=== PATIENT | female | born 1960 | race Two or more races ===

== ENCOUNTER → 2016-09-07 | Outpatient (CLI) | payer MEDICARE, MEDICAID ==
[2015-12-25 04:08] VITALS: BP 114/57
[~2016-09-07] MED LIST: ONDA4TAB10 SL; unknown BP med PO
--- NOTE | 2016-09-11 12:16 | RESP ---
DATE OF SERVICE: 09/07/2016 The patient underwent full pulmonary function testing dated 09/07/2016. FEV1 to FVC ratio was 98%. FEV1 was elevated at 127% of predicted. FVC was elevated at 124% of predicted. Total lung capacity was elevated. Residual volume was elevated. Diffusion capacity was elevated. IMPRESSION: 1. No evidence of restrictive or obstructive disorder. 2. Elevated residual volume compatible with air trapping. BENNY PATTERSON MD DR: FANTASMA/felix JOB#: [id number] / [id number] MORIAH Combs MD
== END | disposition home or self-care (01) ==
LOC: PF 12:11
PROVIDERS: ATTEND Internal Medicine Cardiovascular Disease
DX: J44.9 Chronic obstructive pulmonary disease, unspecified (principal)
CPT/HCPCS: 94010; 94729

== ENCOUNTER 2017-11-13 08:45 | Emergency (ER) | payer MEDICARE, MEDICAID ==
[2017-11-13] MEDS: KETOROLAC 60 MG/2 ML INJ. IM (09:07)
[2017-11-13] MEDS: DEXAMETHASONE SOD PHOS 20 MG/5 ML VIAL. IM (09:08)
== END 2017-11-13 09:25 | disposition home or self-care (01) ==
LOC: ER 08:45
DX: M54.5 Low back pain (principal); F41.9 Anxiety disorder, unspecified; F32.9 Major depressive disorder, single episode, unspecified; E78.00 Pure hypercholesterolemia, unspecified; Z90.49 Acquired absence of other specified parts of digestive tract; Z90.89 Acquired absence of other organs
CPT/HCPCS: 96372; 99284; J1100; J1885

== ENCOUNTER 2018-02-06 20:37 | Emergency (ER) | payer MEDICARE, MEDICAID ==
[~2018-02-06] VITALS: Ht 157.5 cm; Wt 77.1 kg
[~2018-02-06 20:37] MED LIST changes: +CYCL10TA2 PO; +DICL50TA2 PO; +METH4TAB2 PO
[2018-02-06] MEDS ORDERED: IV NORMAL SALINE 1000ML BAG 1,000 ML IV ONE (21:45)
[2018-02-06 22:10] LABS: BASO % 1 % (0-3); EOS # 0.2 x10^3/uL (0.0-0.7); EOS % 3 % (0-3); HEMATOCRIT 38.6 % (36.0-47.0); HEMOGLOBIN 13.6 g/dL (12.0-15.5); LYMPH # 2.2 x10^3/uL (1.0-4.8); LYMPH % 37 % (24-48); MEAN CORPUSCULAR HEMOGLOBIN 33 pg (25-35); MEAN CORPUSCULAR HGB CONC 35 g/dL (31-37); MEAN CORPUSCULAR VOLUME 93 fL (79-100); MONO # 0.5 x10^3/uL (0.0-1.1); MONO % 8 % (0-9); NEUT # 2.9 x10^3uL (1.8-7.7); NEUT % 50 % (31-73); PLATELET COUNT 219 x10^3/uL (140-400); RED BLOOD COUNT 4.15 x10^6/uL (3.50-5.40); RED CELL DISTRIBUTION WIDTH 13.1 % (11.5-14.5); WHITE BLOOD COUNT 5.8 x10^3/uL (4.0-11.0)
--- NOTE | 2018-02-06 22:13 | PHYS DOC ---
Past Medical History Past Medical History: High Cholesterol, Hypertension Past Surgical History: Appendectomy, Cholecystectomy Additional Past Surgical Histo: STOMACH SURGERY - "THEY TOOK OUT MY INTESTINE BECAUSE OF A TUMOR" Alcohol Use: None Drug Use: None Adult General Chief Complaint Chief Complaint: HEADACHE HPI HPI 57-year-old female presents for evaluation of headache for one week. She states has felt nauseated at times and lightheaded. Denies fevers, chest pain or shortness of air. She reports photosensitivity. She denies history of migraines. Denies recent falls or injuries. She denies any lateralizing weakness. She states has taken ibuprofen without relief. Review of Systems Review of Systems Constitutional: Denies fever or chills [] Eyes: Denies change in visual acuity, redness, or eye pain [] HENT: Denies nasal congestion or sore throat [] Respiratory: Denies cough or shortness of breath [] Cardiovascular: No additional information not addressed in HPI [] GI: Denies abdominal pain, nausea, vomiting, bloody stools or diarrhea [] : Denies dysuria or hematuria [] Musculoskeletal: Denies back pain or joint pain [] Integument: Denies rash or skin lesions [] Neurologic: Denies focal weakness or sensory changes [] All other systems were reviewed and found to be within normal limits, except as documented in this note. Current Medications Current Medications Current Medications Medications (Trade) Dose Ordered Sig/Derek Start Time Stop Time Status Last Admin Dose Admin Dexamethasone Sodium Phosphate (Decadron) 10 mg 1X ONCE 02/06/18 22:45 02/06/18 22:46 DC 02/06/18 22:59 10 MG Diphenhydramine HCl (Benadryl) 25 mg 1X ONCE 02/06/18 22:45 02/06/18 22:46 DC 02/06/18 22:59 25 MG Sodium Chloride 1,000 ml @ 1,000 mls/hr 1X ONCE 02/06/18 21:45 02/06/18 22:44 DC 02/06/18 22:04 1,000 MLS/HR Allergies Allergies Allergies Coded Allergies Type Severity Reaction Last Updated Verified No Known Drug Allergies 10/12/14 No Physical Exam Physical Exam Constitutional: Well developed, well nourished, no acute distress, non-toxic appearance. [] HENT: Normocephalic, atraumatic, oropharynx moist, no oral exudates, nose normal. [] Eyes: PERRLA, EOMI, conjunctiva normal, no discharge. [] Neck: Normal range of motion, no tenderness, supple, no stridor. [] Cardiovascular:Heart rate regular rhythm, no murmur [] Lungs & Thorax: Bilateral breath sounds clear to auscultation [] Abdomen: Bowel sounds normal, soft, no tenderness, no masses, no pulsatile masses. [] Skin: Warm, dry, no erythema, no rash. [] Back: No tenderness, no CVA tenderness. [] Neurologic: Alert and oriented X 3, normal motor function, normal sensory function, no focal deficits noted. [] Psychologic: Affect normal, judgement normal, mood normal. [] Current Patient Data Vital Signs Vital Signs Date Time Temp Pulse Resp B/P (MAP) Pulse Ox O2 Delivery O2 Flow Rate FiO2 02/06/18 22:45 64 12 100 02/06/18 21:09 97.7 134/76 (95) Room Air 97.7 Lab Values Laboratory Tests Test 02/06/18 22:03 02/06/18 22:30 White Blood Count 5.8 x10^3/uL (4.0-11.0) Red Blood Count 4.15 x10^6/uL (3.50-5.40) Hemoglobin 13.6 g/dL (12.0-15.5) Hematocrit 38.6 % (36.0-47.0) Mean Corpuscular Volume 93 fL (79-100) Mean Corpuscular Hemoglobin 33 pg (25-35) Mean Corpuscular Hemoglobin Concent 35 g/dL (31-37) Red Cell Distribution Width 13.1 % (11.5-14.5) Platelet Count 219 x10^3/uL (140-400) Neutrophils (%) (Auto) 50 % (31-73) Lymphocytes (%) (Auto) 37 % (24-48) Monocytes (%) (Auto) 8 % (0-9) Eosinophils (%) (Auto) 3 % (0-3) Basophils (%) (Auto) 1 % (0-3) Neutrophils # (Auto) 2.9 x10^3uL (1.8-7.7) Lymphocytes # (Auto) 2.2 x10^3/uL (1.0-4.8) Monocytes # (Auto) 0.5 x10^3/uL (0.0-1.1) Eosinophils # (Auto) 0.2 x10^3/uL (0.0-0.7) Basophils # (Auto) 0.0 x10^3/uL (0.0-0.2) Sodium Level 141 mmol/L (136-145) Potassium Level 3.4 mmol/L (3.5-5.1) L Chloride Level 106 mmol/L (98-107) Carbon Dioxide Level 27 mmol/L (21-32) Anion Gap 8 (6-14) Blood Urea Nitrogen 21 mg/dL (7-20) H Creatinine 0.8 mg/dL (0.6-1.0) Estimated GFR (Cockcroft-Gault) 73.4 BUN/Creatinine Ratio 26 (6-20) H Glucose Level 97 mg/dL (70-99) Calcium Level 9.3 mg/dL (8.5-10.1) Total Bilirubin 0.3 mg/dL (0.2-1.0) Aspartate Amino Transferase (AST) 23 U/L (15-37) Alanine Aminotransferase (ALT) 48 U/L (14-59) Alkaline Phosphatase 87 U/L (46-116) Creatine Kinase 44 U/L (26-192) Creatine Kinase MB (Mass) 0.8 ng/mL (0.0-3.6) Creatine Kinase MB Relative Index % (0-4) Total Protein 6.9 g/dL (6.4-8.2) Albumin 3.5 g/dL (3.4-5.0) Albumin/Globulin Ratio 1.0 (1.0-1.7) Laboratory Tests 02/06/18 22:03 Laboratory Tests 02/06/18 22:30 EKG EKG [EKG normal sinus rhythm, no STEMI, rate 65, read by ER physician] Radiology/Procedures Radiology/Procedures [PROCEDURE: CT HEAD WO CONTRAST PQRS Compliance statement: One or more of the following individualized dose reduction techniques were utilized for this examination: 1. Automated exposure control. 2. Adjustment of the mA and/or kV according to patient size. 3. Use of iterative reconstruction technique. Indication:headache x 1 week, prior sent TECHNIQUE: CT head without IV contrast COMPARISON:02/17/2017 FINDINGS: No pathologic extra-axial or intra-axial fluid collection. No acute intracranial bleed. The ventricles and basal cisterns are within normal limits. No focal loss of lyons-white differentiation. Visualized orbits within normal limits. No suspicious calvarial lesion. Visualized paranasal sinuses and mastoid air cells are clear. IMPRESSION: No acute intracranial process. Electronically signed by: Timo Howell DO (02/06/2018 10:28 PM) [facility] ] Course & Med Decision Making Course & Med Decision Making Pertinent Labs and Imaging studies reviewed. (See chart for details) [Vital Signs stable, patient is afebrile and nontoxic in appearance. Workup today in the emergency room fist reveal any acute pathology. Patient reports her headache is resolved after medications and IV fluids. She has an appointment tomorrow with her primary care doctor. We'll discussed headache with him as well tomorrow. She is stable for discharge home.] Dragon Disclaimer Dragon Disclaimer This electronic medical record was generated, in whole or in part, using a voice recognition dictation system. Departure Departure Impression: Primary Impression: Headache Disposition: 01 HOME, SELF-CARE Condition: STABLE Referrals: REESE WHITE MD (PCP) Patient Instructions: General Headache Without Cause, [id number] REDDY TORRE APRN Feb 06, 2018 22:13
--- NOTE | 2018-02-06 22:31 | RAD ---
PQRS Compliance statement: One or more of the following individualized dose reduction techniques were utilized for this examination: 1. Automated exposure control. 2. Adjustment of the mA and/or kV according to patient size. 3. Use of iterative reconstruction technique. Indication:headache x 1 week, prior sent TECHNIQUE: CT head without IV contrast COMPARISON:02/17/2017 FINDINGS: No pathologic extra-axial or intra-axial fluid collection. No acute intracranial bleed. The ventricles and basal cisterns are within normal limits. No focal loss of lyons-white differentiation. Visualized orbits within normal limits. No suspicious calvarial lesion. Visualized paranasal sinuses and mastoid air cells are clear. IMPRESSION: No acute intracranial process. Electronically signed by: Timo Howell DO (02/06/2018 10:28 PM) [facility]
[2018-02-06] MEDS ORDERED: diphenhydrAMINE HCL 25 MG CAPSULE PO ONE (22:45)
[2018-02-06] MEDS ORDERED: DEXAMETHASONE SOD PHOS 4 MG/ML VIAL IV ONE (22:45)
[2018-02-06 22:54] LABS: CALCIUM 9.3 mg/dL (8.5-10.1); CREATININE 0.8 mg/dL (0.6-1.0); GFR 73.4; POTASSIUM 3.4 mmol/L (3.5-5.1)
[2018-02-06 22:59] LABS: ALBUMIN 3.5 g/dL (3.4-5.0); TOTAL BILIRUBIN 0.3 mg/dL (0.2-1.0); TOTAL PROTEIN 6.9 g/dL (6.4-8.2)
[2018-02-06 23:05] LABS: CREATINE KINASE 44 U/L (26-192)
[2018-02-06 23:15] VITALS: BP 147/68
--- NOTE | 2018-02-07 07:13 | EKG ---
[facility] [address] [place] [address] Test Date: 2018-02-06 Test Time: 22:46:54 Pat Name: TERESA WARD Department: Room: Gender: F Director Instructional Material: : 1960 Requested By: REDDY TORRE Order Number: [id number] Reading MD: Josiah Altamirano MD Measurements Intervals Falls Rate: 65 P: 48 [place]: 182 QRS: 46 QRSD: 94 T: 45 QT: 414 QTc: 435 Interpretive Statements SINUS RHYTHM Electronically Signed On 02-07-2018 11:21:30 CDT by Josiah Altamirano MD
== END 2018-02-06 23:45 | disposition home or self-care (01) ==
LOC: ER 20:37
DX: R51 Headache (principal); R42 Dizziness and giddiness; I10 Essential (primary) hypertension; E78.00 Pure hypercholesterolemia, unspecified
CPT/HCPCS: 36415; 70450; 80053; 82553; 84484; 85025; 93005; 96361; 96374; 99285; J1100; J7030; Q0163

== ENCOUNTER → 2018-03-05 | Day surgery (SDC) | payer MEDICARE, MEDICAID ==
[~2018-03-05] MED LIST changes: +AMIT10TA PO; +AMLO5TAB7 PO; +ATOR40TA59 PO; +DULO30CA2 PO; +EPINEPHrine 1 MG/ML VIAL SQ ONE; +EPINEPHrine SYRINGE 1 MG/10 ML SYRINGE ONE; +IV RINGERS,LACTATED 1000ML 1,000 ML IV SCH; +LIDOCAINE 1% PF 2 ML VIAL. ID PRN; +LIDOCAINE 2% 100 MG/5 ML SYRINGE. ONE; +LISI1TAB5 PO; +MIDAZOLAM HCL/PF 2 MG/2 ML VIAL. IV PRN; +PANT20TA2 PO; +PROPOFOL 20 ML IV ONE; +PROPOFOL 40 ML IV ONE; +fentaNYL PF VIAL 100 MCG/2 ML VIAL IV PRN
--- NOTE | 2018-03-05 08:14 | PDOC1 ---
HISTORY & PHYSICAL H&P see attached H&P from my office that is on the chart. BASIL BENAVIDES MD Mar 05, 2018 08:14
[2018-03-05 09:10] VITALS: BP 142/73
--- NOTE | 2018-03-06 14:11 | PATHOLOGY ---
[facility] Accession Number: [id number] . 01 Material submitted: . DISTAL ESOPHAGUS BIOPSY . 01 Clinical history: . Abdominal pain, screening . 02 Diagnosis: Esophageal biopsy, distal esophagus: - Segments of hyperplastic squamous esophageal mucosa and focally contiguous gastric mucosa showing active chronic inflammation, consistent with reflux esophagitis. (JPM:miguelina; 03/06/2018) QMS/03/06/2018 . 02 Comment: Sections of the distal esophageal biopsy reveal segments of hyperplastic squamous esophageal mucosa and focally contiguous gastric mucosa showing moderate active chronic inflammation. The findings are consistent with reflux esophagitis. There is no evidence of De La O's change, dysplasia, or malignancy. (JPM:miguelina; 03/06/2018) . 02 Electronically signed: . Lyndon Whitmore MD, Pathologist NPI- [id number] . 01 Gross description: . Received in formalin labeled "Rosibel Dillon, distal esophagus BX," is a single segment of foote soft tissue measuring 0.6 cm in maximum dimension. The specimen is entirely submitted in cassette A1. (TSD; 03/05/2018) TOB/TOB . 02 Pathologist provided ICD-10: K21.0 . 02 CPT . 800100 Specimen Comment: A courtesy copy of this report has been sent to Specimen Comment: [phone], . Specimen Comment: Report sent to / DR WHITE Performed at: 01 [facility] [address], [place] [id number] MD Otoniel Alcazar MD Phone: [phone] Performed at: 02 [facility] [address], [place] [id number] MD Lyndon Whitmore MD Phone: [phone]
== END | disposition home or self-care (01) ==
LOC: ENDOS 07:47
PROVIDERS: ATTEND Internal Medicine Gastroenterology
DX: K29.50 Unspecified chronic gastritis without bleeding (principal); K21.9 Gastro-esophageal reflux disease without esophagitis; R10.32 Left lower quadrant pain; K57.30 Diverticulosis of large intestine without perforation or abscess without bleeding; K44.9 Diaphragmatic hernia without obstruction or gangrene; I10 Essential (primary) hypertension; E78.00 Pure hypercholesterolemia, unspecified; F32.9 Major depressive disorder, single episode, unspecified; F41.9 Anxiety disorder, unspecified; F17.210 Nicotine dependence, cigarettes, uncomplicated; Z98.0 Intestinal bypass and anastomosis status; Z79.899 Other long term (current) drug therapy; Z90.49 Acquired absence of other specified parts of digestive tract; Z90.710 Acquired absence of both cervix and uterus
CPT/HCPCS: 43239; 45378; 88305; J0171; J2704

== ENCOUNTER → 2018-03-19 | Outpatient (CLI) | payer MEDICARE, MEDICAID ==
[2018-03-05 09:10] VITALS: BP 142/73
[~2018-03-19] MED LIST changes: -EPINEPHrine 1 MG/ML VIAL SQ ONE; -EPINEPHrine SYRINGE 1 MG/10 ML SYRINGE ONE; -IV RINGERS,LACTATED 1000ML 1,000 ML IV SCH; -LIDOCAINE 1% PF 2 ML VIAL. ID PRN; -LIDOCAINE 2% 100 MG/5 ML SYRINGE. ONE; -MIDAZOLAM HCL/PF 2 MG/2 ML VIAL. IV PRN; -PROPOFOL 20 ML IV ONE; -PROPOFOL 40 ML IV ONE; -fentaNYL PF VIAL 100 MCG/2 ML VIAL IV PRN
--- NOTE | 2018-03-19 13:19 | KCIC ---
MRI of the lumbar spine without contrast 03/19/2018 CLINICAL HISTORY: Chronic low back pain which radiates down the right leg. TECHNIQUE: Unenhanced T1-weighted and T2-weighted sagittal and axial and inversion recovery sagittal images of the lumbar spine were obtained. FINDINGS: Minimal S-shaped curvature of the thoracolumbar spine is seen. Degenerative signal changes are seen involving the L3-4, L4-5 and L5-S1 discs. Degenerative signal changes are seen within the marrow surrounding these discs. The conus medullaris is normal in morphology, position, and signal characteristics. Perineural cysts are seen within the sacral spinal canal. These measure 1 to 1.4 cm in size. At the L1-2, L2-3 and L3-4 disc spaces there are minimal to mild generalized disc bulges. Degenerative changes are seen involving the facet joints bilaterally. There is mild ligamentum flavum hypertrophy bilaterally. These findings when combined do not result in significant central spinal canal or neural foraminal stenosis. At the L4-5 disc space there is a mild generalized disc bulge. Superimposed on this disc bulge is a focal central disc protrusion. This measures 2 to 3 mm in AP diameter. Degenerative changes are seen involving the facet joints bilaterally. There are small facet joint effusions. There is mild ligamentum flavum hypertrophy bilaterally. These findings when combined and mild central spinal canal stenosis. No neural foraminal stenosis is seen. At the L5-S1 disc space there is a mild generalized disc bulge. This is eccentric to the right. Degenerative changes are seen involving the facet joints bilaterally. There is mild ligamentum flavum hypertrophy bilaterally. These findings when combined do not result in significant central spinal canal or neural foraminal stenosis. IMPRESSION: The changes of degenerative disc disease are seen involving the lumbar spine. These findings result in mild central spinal canal stenosis at L4-5. No neural foraminal stenosis is seen. Electronically signed by: Mainor Pardo MD (03/19/2018 1:16 PM) [facility]
== END | disposition home or self-care (01) ==
LOC: KCIC MRI 09:21
PROVIDERS: ATTEND Family Medicine
DX: G89.29 Other chronic pain (principal); M51.36 Other intervertebral disc degeneration, lumbar region; M48.061 Spinal stenosis, lumbar region without neurogenic claudication; M25.48 Effusion, other site; M51.26 Other intervertebral disc displacement, lumbar region
CPT/HCPCS: 72148

== ENCOUNTER → 2018-04-22 | Outpatient (CLI) | payer MEDICARE, MEDICAID ==
[2018-03-05 09:10] VITALS: BP 142/73
[~2018-04-22] MED LIST changes: +IOHEXOL 180 MG/ML 10 ML VIAL. ONE; +methylPREDNISolone ACETATE 40 MG/ML VIAL. ONE; +methylPREDNISolone ACETATE 80 MG/ML VIAL. ONE
--- NOTE | 2018-04-22 18:57 | PAIN ---
DATE OF SERVICE: 04/22/2018 INITIAL CONSULTATION FOR PAIN CLINIC CHIEF COMPLAINT: Low back and right lower extremity pain. HISTORY OF PRESENT ILLNESS: This is a 57-year-old female who presents with history of pain in the low back and right lower extremity, also in the posterior gluteus, posterior lateral thigh, lateral anterior thigh, medial thigh, medial lower leg into the ankle and foot on the right side as well as in the medial aspect. The patient reports the pain is stabbing, shooting, tingling with numbness and cramping, worse with walking and standing. It is going on for about 6 months, not a result of any specific injury or action that she is aware of, but she did fall over the summer when the pain became more noticeable at that time. The patient reports it awakens her from sleep at least every 4-5 times at night, does not affect her bowel or bladder control, but does affect her ability to walk. She is not using any assistive devices, although cane has been recommended by her gem carver. The patient did have an MRI scan of the lumbar spine showing disk bulging throughout with L4-L5 disk space, mild generalized disk bulge with superimposed focal central disk protrusion with mild central spinal canal stenosis. L5-S1 shows mild generalized disk bulge eccentric to the right, degenerative changes seen in the facet joints and no significant central stenosis or neural foraminal stenosis at L5-S1. L1-L2, L2-L3, L3-L4 shows minimal to mild generalized disk bulging as well. The patient reports her disability rating from 0-10, 10 being the worst, is an 8 with family and home responsibilities, recreation, social activity, occupation, sexual behavior, self-care and life support activities, all 8 on a scale of 10. The patient has not had any previous physical therapy. She did have physical therapy ordered, but did not follow up with it. She is doing some stretching on her own at home and trying to walk daily, but the pain is still fairly significant. The patient did not take any medications that have helped. She has tried [id number] Motrin as well as Tylenol, which was not significantly decreasing the pain by more than 20%. The patient reports no symptoms in the left lower extremity, significant fatigability with the right lower extremity with walking for more than about 10-15 minutes, but no overt loss of function or falling since last summer. PAST MEDICAL HISTORY: Significant for hearing loss in the left ear, hypertension, quit smoking 20 years ago, gastroesophageal reflux, dizziness, headaches, depression, arthritis. PREVIOUS SURGERIES: Include partial hysterectomy, colon resection, cholecystectomy, and breast lumpectomy, which reportedly was benign. FAMILY HISTORY: Significant for no major medical problems or conditions that she is aware of. SOCIAL HISTORY: The patient does not drink alcohol and does not smoke, quit many years ago. She is single, has 4 children living at home. Lives locally in [place], [place]. MEDICATIONS: The patient's medications are complete and full and well documented on the patient's chart. REVIEW OF SYSTEMS: The patient's review of systems is positive for those items mentioned in history of present illness. All systems reviewed and otherwise negative. It is complete, full and well documented on the patient's chart as well. PHYSICAL EXAMINATION: VITAL SIGNS: The patient's blood pressure is 130/93, pulse 75, respirations 16, temperature is 98.5 degrees Fahrenheit, height is 5 feet 2 inches, and weight is 171 pounds. GENERAL: The patient is awake, alert, oriented, appropriate, very pleasant demeanor. HEENT: Shows normocephalic, atraumatic. Extraocular movements are intact and symmetrical. Oral cavity: Mucous membranes are moist and pink. Dentition is intact. NECK: Shows anterior throat supple without palpable lymphadenopathy noted. Swallow reflex is symmetrical. CHEST: Shows normal on inspection. Breath sounds are clear to auscultation bilaterally. HEART: Shows S1, S2 clear. No murmurs auscultated. ABDOMEN: Soft, nontender, nondistended. No palpable organomegaly is noted. No rebound or guarding demonstrated. BACK: Shows spine grossly in the midline. Normal appearing thoracic kyphosis and some minor flattening of lumbar lordotic curvature. Lumbar paraspinous muscle shows symmetrical on inspection, with palpation shows some moderate tenderness in the middle and lower distribution of the paraspinous muscles, but only diffusely without significant radiation. No tenderness over the spinous processes, sacrum or sacroiliac regions. The patient has good rotational motion of lumbar spine, both laterally greater than 10 degrees right and left as well as extension greater than 10 degrees, forward flexion 45 degrees without significant pain reported. EXTREMITIES: Lower extremities show deep tendon reflexes at 2+ in the patellar and 1+ tendo-calcaneus tendons. Motor exam is approximately 4 on a scale of 5 with right dorsiflexion, extension, quadriceps and hamstring flexion and 5/5 on the left. Peripheral pulses are 1+ posterior tibia. No peripheral edema is noted bilaterally. Lower extremities are warm and dry to the touch, equal in color and appearance. Straight leg raise noted to be negative for reproduction of radicular symptoms bilaterally. Gaenslen's and Daryl's maneuvers are negative bilaterally as well. The patient is able to stand, stand on her toes without significant difficulty or loss of balance, walks with a favoring gait, does appear to have a limp and favor the right lower extremity with ambulation. SKIN: Shows warm and dry, good turgor. No edema. No sores, rashes or bruising. IMPRESSION: 1. This is a 57-year-old female with approximate 6-month history of increasing pain in the low back and right lower extremity. 2. MRI scan of lumbar spine as noted. 3. Arthritis. 4. Hypertension. PLAN: Options were discussed with the patient including conservative medical management, physical therapies, interventional techniques. She would like to pursue interventional techniques. We discussed a lumbar epidural steroid injection using descriptions as well as anatomical models to describe the procedure. Risks were then discussed including, but not limited to bleeding, infection, possibility of epidural hematoma and subsequent neurological compromise, dural puncture, headaches, spinal cord and/or nerve damage, side effects of steroid medication and poor results regarding pain control. The patient understands and wished to proceed. The patient will return to the clinic in approximately 2 weeks for followup, was counseled on return appointment, activity level and side effects to be aware of. DIAGNOSIS: Lumbar radiculopathy with lumbar degenerative disk disease and lumbar spinal stenosis. PROCEDURE: Lumbar epidural steroid injection, translaminar approach at L4-L5 level using C-arm fluoroscopic guidance under sterile prep and drape using local anesthetic. MEDICATION INJECTED: A total of 120 mg Depo-Medrol plus 10 mL of preservative-free normal saline and 2 mL of Isovue for contrast. CONDITION AT DISCHARGE: Stable. The patient tolerated the procedure well, had no complications. JERSON CHATTERJEE MD DR: YIMI/felix JOB#: [id number] / [id number] ecc Marichuy Ibanez MD
== END | disposition home or self-care (01) ==
LOC: PNCL 09:07
PROVIDERS: ATTEND Anesthesiology
DX: M51.16 Intervertebral disc disorders with radiculopathy, lumbar region (principal); M48.061 Spinal stenosis, lumbar region without neurogenic claudication; I10 Essential (primary) hypertension; M19.90 Unspecified osteoarthritis, unspecified site; Z87.891 Personal history of nicotine dependence; K21.9 Gastro-esophageal reflux disease without esophagitis; F32.9 Major depressive disorder, single episode, unspecified; H91.92 Unspecified hearing loss, left ear; Z90.710 Acquired absence of both cervix and uterus; Z90.49 Acquired absence of other specified parts of digestive tract; Z98.890 Other specified postprocedural states; Z79.899 Other long term (current) drug therapy
CPT/HCPCS: 62323; J1030; J1040; Q9965

== ENCOUNTER → 2018-05-27 | Outpatient (CLI) | payer MEDICARE, MEDICAID ==
[2018-03-05 09:10] VITALS: BP 142/73
[~2018-05-27] MED LIST changes: +AMLO5TAB10 PO; -AMLO5TAB7 PO; -IOHEXOL 180 MG/ML 10 ML VIAL. ONE; -methylPREDNISolone ACETATE 40 MG/ML VIAL. ONE; -methylPREDNISolone ACETATE 80 MG/ML VIAL. ONE
--- NOTE | 2018-05-27 16:41 | PAIN ---
DATE OF SERVICE: 05/27/2018 PROGRESS NOTE FOR PAIN CLINIC DIAGNOSES: Lumbar radiculopathy with lumbar spinal stenosis, lumbar degenerative disk disease. HISTORY OF PRESENT ILLNESS: The patient is a 57-year-old female who returns for followup status post lumbar epidural steroid injection x 1. The patient reports very good improvement about 50% relief. She was doing quite well, increase her activity at home as well as work, distance walking, sleeping better, sitting for prolonged periods with greater ease and comfort, traveling better. She went to help her sister in [place], moved to a new home a few weeks ago and reports that the pain returned as she was doing a lot of heavy lifting and moving items, climbing a lot of stairs and so forth, but the pain now since she has been back has been less. The patient reports it is in the low back, still into the right lower extremity as it was previously, posterior gluteus, posterior thigh, lateral thigh, medial thigh, but much improved. The patient reports that she has been back home, the pain has been getting back to where it was prior to her moving her sister and reports her pain as 9 on a scale of 10 at its worst, 8 on average, 8 at its least and is an 8 today. It is sharp and dull, shooting and stinging at times, sometimes unbearable, but mostly improving overall. The patient would like to give this more time for any further injections. The patient reports no new motor or sensory deficits, no new bowel or bladder incontinence or other complaints. PHYSICAL EXAMINATION: VITAL SIGNS: The patient's blood pressure 124/81, pulse 80, respirations 16, temperature 97.4 degrees Fahrenheit, weight 167 pounds. GENERAL: The patient is awake, alert, oriented, appropriate, very pleasant demeanor. HEENT: Head shows normocephalic, atraumatic. Extraocular muscles are intact and symmetrical. Oral cavity: Mucous membranes moist and pink. Dentition is intact. NECK: Shows anterior throat supple without palpable lymphadenopathy noted. Swallow reflex symmetrical. CHEST: Shows normal on inspection. Breath sounds clear to auscultation bilaterally. HEART: Shows S1, S2 clear. No murmurs. ABDOMEN: Soft, nontender, nondistended. No palpable organomegaly is noted. No rebound or guarding demonstrated. BACK: Shows spine grossly in the midline. Normal appearing thoracic kyphosis and lumbar lordotic curvature. Lumbar paraspinous muscle shows symmetrical on inspection, on palpation shows some moderate tenderness diffusely bilaterally, but only diffusely without radiation. The patient has good rotational motion of lumbar spine, both laterally as well as extension and flexion without difficulty. EXTREMITIES: Lower extremities show deep tendon reflexes at 2+ in the patellar, 1+ tendo calcaneus tendons. Motor exam is approximately 4 on a scale 5 on the right and 5/5 on the left with dorsiflexion and extension. Peripheral pulses are 1+ posterior tibial. No peripheral edema is noted bilaterally. PLAN: Options were discussed with the patient. The patient's old chart was reviewed as her current medication regimen updated. Current review of systems updated today as well. We will hold on any further injections at this time, we will try Medrol Dosepak. The patient was given instruction as well as side effects to be aware of with medication. The patient will continue to increase activity as tolerated, do stretching and strengthening exercises and will return to clinic on an as needed basis at this time. JERSON CHATTERJEE MD DR: YIMI/felix JOB#: [id number] / [id number]
== END | disposition home or self-care (01) ==
LOC: PNCL 09:07
PROVIDERS: ATTEND Anesthesiology
DX: M48.061 Spinal stenosis, lumbar region without neurogenic claudication (principal); M51.16 Intervertebral disc disorders with radiculopathy, lumbar region
CPT/HCPCS: G0463

== ENCOUNTER → 2018-07-31 | Outpatient (CLI) | payer MEDICARE, MEDICAID ==
[2018-03-05 09:10] VITALS: BP 142/73
--- NOTE | 2018-08-01 12:32 | RAD ---
DATE: 07/31/2018 EXAM: MAMMO JARON SCREENING BILATERAL HISTORY: Routine screening COMPARISON: 04/21/2014 This study was interpreted with the benefit of Computerized Aided Detection (CAD). Breast Density: HETERO The breast parenchyma is heterogenously dense, which could reduce sensitivity of mammography. Breast parenchyma level C. FINDINGS: 2-D and 3-D tomosynthesis imaging was performed in CC and MLO projections. No new or enlarging breast densities are seen. Benign type calcification is present. No suspicious microcalcifications have developed. IMPRESSION: Stable mammograms without evidence of malignancy. BI-RADS CATEGORY: 2 BENIGN FINDING(S) RECOMMENDED FOLLOW-UP: 12M 12 MONTH FOLLOW-UP PQRS compliance statement: Patient information was entered into a reminder system with a target due date for the next mammogram. Mammography is a sensitive method for finding small breast cancers, but it does not detect them all and is not a substitute for careful clinical examination. A negative mammogram does not negate a clinically suspicious finding and should not result in delay in biopsying a clinically suspicious abnormality. "Our facility is accredited by the [employer] Mammography Program."
== END | disposition home or self-care (01) ==
LOC: RAD 14:57
PROVIDERS: ATTEND Obstetrics & Gynecology
DX: Z12.31 Encounter for screening mammogram for malignant neoplasm of breast (principal); R92.8 Other abnormal and inconclusive findings on diagnostic imaging of breast
CPT/HCPCS: 77063; 77067

== ENCOUNTER → 2018-09-02 | Outpatient (CLI) | payer MEDICARE, MEDICAID ==
[2018-03-05 09:10] VITALS: BP 142/73
[~2018-09-02] MED LIST changes: +IOHEXOL 180 MG/ML 10 ML VIAL. ONE; +methylPREDNISolone ACETATE 40 MG/ML VIAL. ONE; +methylPREDNISolone ACETATE 80 MG/ML VIAL. ONE
--- NOTE | 2018-09-03 09:47 | PAIN ---
DATE OF SERVICE: 09/02/2018 DIAGNOSES: Lumbar radiculopathy with lumbar degenerative disk disease and lumbar spinal stenosis. HISTORY OF PRESENT ILLNESS: The patient is a 57-year-old female who returns for a followup status post lumbar epidural steroid injection x 1, did very well with this. This was in 04/2018 with about 75% improvement. Now, the pain is about 50% improved, but the pain is returning in the low back, especially in the right lower extremity, posterior gluteus, posterolateral thigh, lateral anterior thigh, medial thigh, medial lower leg and calf. The patient went to [place] since her last visit and did a lot of walking and this exacerbated the pain as well. The pain is returning now, mostly with just weightbearing, standing, walking, changing positions, but better with sitting or lying down. The patient reports she was increasing her distance walking, doing household activities, traveling much greater ease and comfort, still does not awaken her from sleep at night, feels much better off her feet. The patient reports it is a 7 on a scale of 10 at all times over the last week. Average, worst and least is a 7 today. The patient reports it is a sharp and aching, dull and stinging and shooting pain in the right leg. No new motor or sensory deficits. The patient reports no new bowel or bladder incontinence or other complaints. PHYSICAL EXAMINATION: VITAL SIGNS: The patient's blood pressure is 133/87, pulse 94, respirations 16, temperature is 98.0 degrees Fahrenheit, weight is 171 pounds. GENERAL: The patient is awake, alert, oriented, appropriate, very pleasant demeanor. HEENT: Shows normocephalic, atraumatic. Extraocular movements are intact and symmetrical. Oral cavity shows mucous membranes moist and pink. Dentition is intact. NECK: Shows anterior throat supple without palpable lymphadenopathy noted. Swallow reflex is symmetrical. CHEST: Shows normal on inspection. Breath sounds are clear to auscultation bilaterally. HEART: Shows S1, S2 clear. No murmurs auscultated. ABDOMEN: Soft, nontender, nondistended. No palpable organomegaly is noted. No rebound or guarding demonstrated. MUSCULOSKELETAL: Back shows spine grossly in the midline, normal appearing thoracic kyphosis, some minor flattening of the lumbar lordotic curvature. Lumbar paraspinous muscle shows symmetrical on inspection; with palpation shows some moderate tenderness diffusely in the middle and lower distribution of paraspinous muscles, but only diffusely without significant radiation. The patient shows good rotational motion of lumbar spine, both laterally as well as extension and flexion without significant pain reported. Lower extremities show deep tendon reflexes 2+ in the patellar, 1+ tendo-calcaneus tendons. Motor exam is approximately 4 on a scale of 5 on the right, 5/5 on the left with dorsiflexion, extension, quadriceps and hamstring flexion. Peripheral pulses are 1+, posterior tibia. No peripheral edema is noted. PLAN: Options were discussed with the patient. The patient's old chart was reviewed as is her current medication regimen and updated. Current review of systems updated today as well and we will proceed with a lumbar epidural steroid injection with fluoroscopic guidance. Risks were again discussed including, but not limited to, bleeding, infection, possibility of epidural hematoma and subsequent neurological compromise, dural puncture, headaches, spinal cord and/or nerve damage, side effects of steroid medication and poor results regarding pain control. The patient understands and wished to proceed. The patient will return to the clinic in approximately 2 weeks for a followup, was counseled on return appointment, activity level and side effects to be aware of. DIAGNOSES: Lumbar radiculopathy with lumbar degenerative disk disease, lumbar spinal stenosis. PROCEDURE: Lumbar epidural steroid injection, translaminar approach, L4-L5 level using C-arm fluoroscopic guidance under sterile prep and drape using local anesthetic. MEDICATION INJECTED: A total of 120 mg Depo-Medrol plus 10 mL of preservative-free normal saline and 2 mL of Isovue for contrast. CONDITION AT DISCHARGE: Stable. The patient tolerated procedure well, had no complications. JERSON CHATTERJEE MD DR: YIMI/felix JOB#: [id number] / [id number]
== END | disposition home or self-care (01) ==
LOC: PNCL 09:11
PROVIDERS: ATTEND Anesthesiology
DX: M51.16 Intervertebral disc disorders with radiculopathy, lumbar region (principal); M48.061 Spinal stenosis, lumbar region without neurogenic claudication
CPT/HCPCS: 62323; J1030; J1040; Q9965

== ENCOUNTER 2019-05-14 10:14 | Emergency (ER) | payer MEDICARE, MEDICAID ==
[~2019-05-14] VITALS: Ht 157.5 cm; Wt 77.3 kg
[~2019-05-14 10:14] MED LIST changes: -IOHEXOL 180 MG/ML 10 ML VIAL. ONE; +LISI1TAB19 PO; -LISI1TAB5 PO; -methylPREDNISolone ACETATE 40 MG/ML VIAL. ONE; -methylPREDNISolone ACETATE 80 MG/ML VIAL. ONE
[2019-05-14 13:10] VITALS: BP 140/62
[2019-05-14] MEDS ORDERED: IV NORMAL SALINE 1000ML BAG 1,000 ML IV ONE (13:15)
[2019-05-14 13:19] LABS: BASO % 1 % (0-3); EOS # 0.2 x10^3/uL (0.0-0.7); EOS % 3 % (0-3); HEMOGLOBIN 14.1 g/dL (12.0-15.5); LYMPH # 1.7 x10^3/uL (1.0-4.8); LYMPH % 31 % (24-48); MEAN CORPUSCULAR HEMOGLOBIN 31 pg (25-35); MEAN CORPUSCULAR HGB CONC 34 g/dL (31-37); MEAN CORPUSCULAR VOLUME 94 fL (79-100); MONO # 0.4 x10^3/uL (0.0-1.1); MONO % 8 % (0-9); NEUT # 3.1 x10^3/uL (1.8-7.7); NEUT % 57 % (31-73); PLATELET COUNT 201 x10^3/uL (140-400); RED BLOOD COUNT 4.48 x10^6/uL (3.50-5.40); RED CELL DISTRIBUTION WIDTH 12.9 % (11.5-14.5); WHITE BLOOD COUNT 5.4 x10^3/uL (4.0-11.0)
[2019-05-14 13:29] LABS: CALCIUM 8.8 mg/dL (8.5-10.1); CREATININE 0.6 mg/dL (0.6-1.0); POTASSIUM 3.4 mmol/L (3.5-5.1)
[2019-05-14 13:30] LABS: BARBITURATES NEG (NEG); BENZODIAZEPINES NEG (NEG); CANNABINOIDS NEG (NEG); COCAINE NEG (NEG); METHADONE NEG (NEG); OPIATES NEG (NEG); PHENCYCLIDINE NEG (NEG)
[2019-05-14 13:31] LABS: AMPHETAMINE/METHAMPHETAMINE NEG (NEG)
[2019-05-14 13:35] LABS: ALBUMIN 3.5 g/dL (3.4-5.0); TOTAL BILIRUBIN 0.4 mg/dL (0.2-1.0)
[2019-05-14 13:40] LABS: CREATINE KINASE 43 U/L (26-192)
[2019-05-14] MEDS ORDERED: MECLIZINE HCL 12.5 MG TABLET. PO ONE (13:45)
[2019-05-14] MEDS ORDERED: ONDANSETRON PF 4 MG/2 ML VIAL. IVP ONE (13:45)
--- NOTE | 2019-05-14 13:45 | RAD ---
STUDY: CT head without contrast INDICATION: Headache. Dizziness. COMPARISON: 02/06/2018 TECHNIQUE: Axial CT imaging through the head without the use of intravenous contrast. Sagittal and coronal reformats were obtained. One or more of the following individualized dose reduction techniques were utilized for this examination: 1. Automated exposure control 2. Adjustment of the mA and/or kV according to patient size 3. Use of iterative reconstruction technique. FINDINGS: No acute intracranial hemorrhage. No mass effect, midline shift or hydrocephalus. No CT evidence for an acute cortical infarction. Unremarkable scalp and visualized orbits. Unremarkable mastoid air cells and visualized paranasal sinuses. Normally aerated middle ears. Intact calvarium. IMPRESSION: Unremarkable head CT. No significant change from 02/06/2018. Electronically signed by: ROBSON WYNN MD (05/14/2019 1:43 PM) [id number]
--- NOTE | 2019-05-14 13:49 | EKG ---
[facility] [address] [place] [address] Test Date: 2019-05-14 Test Time: 13:28:55 Pat Name: TERESA WARD Department: Room: Gender: F Manager Supplier: : 1960 Requested By: YESSICA ARMSTRONG Order Number: [id number] Reading MD: Measurements Intervals [place] Rate: 57 P: 39 PA: 170 QRS: 34 QRSD: 90 T: 33 QT: 446 QTc: 437 Interpretive Statements SINUS RHYTHM NO SPECIFIC ECG ABNORMALITIES RI6.01 No previous ECG available for comparison
[2019-05-14 14:09] LABS: BILIRUBIN,URINE NEGATIVE (NEG); CLARITY,URINE CLEAR; NITRITE,URINE NEGATIVE (NEG); PH,URINE 5.5; PROTEIN,URINE NEGATIVE (NEG-TRACE); UROBILINOGEN,URINE 0.2 mg/dL (0.2 mg/dL)
[2019-05-14 14:12] LABS: BACTERIA,URINE 0 /HPF (0-FEW); COLOR,URINE YELLOW; RBC,URINE 0 /HPF (0-2); SQUAMOUS EPITHELIAL CELL,UR FEW /LPF; WBC,URINE OCC /HPF (0-4)
[2019-05-14] MEDS ORDERED: MECL12.573 PO (14:58)
--- NOTE | 2019-05-14 14:58 | PHYS DOC ---
Past Medical History Past Medical History: High Cholesterol, Hypertension Past Surgical History: Appendectomy, Cholecystectomy Additional Past Surgical Histo: STOMACH SURGERY - "THEY TOOK OUT MY INTESTINE BECAUSE OF A TUMOR" Alcohol Use: Occasionally Drug Use: None Adult General Chief Complaint Chief Complaint: HEADACHE HPI HPI Patient is a 58 year old female with history of hypertension, high cholesterol, dizziness, headaches, who presents to the ED today complaining of 8 out of 10 intermittent episodes of mid head pain that has been going on for the last 3 weeks. Patient reports this headache is similar to her normal headaches but she feels that lasted longer than normal. She reports she developed some dizziness and the room was spinning today hence the reason she came to the ED to be evaluated but she states she's had similar symptoms before with her headaches. Reports nausea with no vomiting which she also states she's had her headaches. Denies any history of migraine headaches. Review of Systems Review of Systems Constitutional: Denies fever or chills [] Eyes: Denies change in visual acuity, redness, or eye pain [] HENT: Denies nasal congestion or sore throat [] Respiratory: Denies cough or shortness of breath [] Cardiovascular: No additional information not addressed in HPI [] GI: Reports nausea with no vomiting, denies abdominal pain, bloody stools or diarrhea [] : Denies dysuria or hematuria [] Musculoskeletal: Denies back pain or joint pain [] Integument: Denies rash or skin lesions [] Neurologic: Reports headache and dizziness, denies focal weakness or sensory changes [] All other systems were reviewed and found to be within normal limits, except as documented in this note. Current Medications Current Medications Current Medications Medications (Trade) Dose Ordered Sig/Derek Start Time Stop Time Status Last Admin Dose Admin Meclizine HCl (Antivert) 25 mg 1X ONCE 05/14/19 13:45 05/14/19 13:46 DC 05/14/19 13:19 25 MG Ondansetron HCl (Zofran) 4 mg 1X ONCE 05/14/19 13:45 05/14/19 13:46 DC 05/14/19 13:19 4 MG Sodium Chloride 1,000 ml @ 1,000 mls/hr 1X ONCE 05/14/19 13:15 05/14/19 14:14 DC 05/14/19 13:19 1,000 MLS/HR Allergies Allergies Allergies Coded Allergies Type Severity Reaction Last Updated Verified No Known Drug Allergies 03/05/18 No Physical Exam Physical Exam Constitutional: Well developed, well nourished, no acute distress, non-toxic appearance. [] HENT: Normocephalic, atraumatic, bilateral external ears normal, oropharynx moist, no oral exudates, nose normal. [] Eyes: PERRLA, EOMI, conjunctiva normal, no discharge. [] Neck: Normal range of motion, no tenderness, supple, no stridor. [] Cardiovascular:Heart rate regular rhythm, no murmur [] Lungs & Thorax: Bilateral breath sounds clear to auscultation [] Abdomen: Bowel sounds normal, soft, no tenderness, no masses, no pulsatile masses. [] Skin: Warm, dry, no erythema, no rash. [] Back: No tenderness, no CVA tenderness. [] Extremities: No tenderness, no cyanosis, no clubbing, ROM intact, no edema. [] Neurologic: Alert and oriented X 3, normal motor function, normal sensory function, no focal deficits noted. Cranial nerves II through XII intact Psychologic: Affect normal, judgement normal, mood normal. [] Current Patient Data Vital Signs Vital Signs Date Time Temp Pulse Resp B/P (MAP) Pulse Ox O2 Delivery O2 Flow Rate FiO2 05/14/19 12:07 98.0 71 16 125/73 (90) 98 Room Air 98.0 Lab Values Laboratory Tests Test 05/14/19 11:45 05/14/19 12:50 White Blood Count 5.4 x10^3/uL (4.0-11.0) Red Blood Count 4.48 x10^6/uL (3.50-5.40) Hemoglobin 14.1 g/dL (12.0-15.5) Hematocrit 42.0 % (36.0-47.0) Mean Corpuscular Volume 94 fL (79-100) Mean Corpuscular Hemoglobin 31 pg (25-35) Mean Corpuscular Hemoglobin Concent 34 g/dL (31-37) Red Cell Distribution Width 12.9 % (11.5-14.5) Platelet Count 201 x10^3/uL (140-400) Neutrophils (%) (Auto) 57 % (31-73) Lymphocytes (%) (Auto) 31 % (24-48) Monocytes (%) (Auto) 8 % (0-9) Eosinophils (%) (Auto) 3 % (0-3) Basophils (%) (Auto) 1 % (0-3) Neutrophils # (Auto) 3.1 x10^3/uL (1.8-7.7) Lymphocytes # (Auto) 1.7 x10^3/uL (1.0-4.8) Monocytes # (Auto) 0.4 x10^3/uL (0.0-1.1) Eosinophils # (Auto) 0.2 x10^3/uL (0.0-0.7) Basophils # (Auto) 0.0 x10^3/uL (0.0-0.2) Urine Opiates Screen Neg (NEG) Urine Methadone Screen Neg (NEG) Urine Barbiturates Neg (NEG) Urine Phencyclidine Screen Neg (NEG) Urine Amphetamine/Methamphetamine Neg (NEG) Urine Benzodiazepines Screen Neg (NEG) Urine Cocaine Screen Neg (NEG) Urine Cannabinoids Screen Neg (NEG) Urine Ethyl Alcohol Neg (NEG) Urine Collection Type Unknown Urine Color Yellow Urine Clarity Clear Urine pH 5.5 Urine Specific Bock 1.025 Urine Protein Negative mg/dL (NEG-TRACE) Urine Glucose (UA) Negative mg/dL (NEG) Urine Ketones (Stick) Negative mg/dL (NEG) Urine Blood Trace (NEG) Urine Nitrite Negative (NEG) Urine Bilirubin Negative (NEG) Urine Urobilinogen Dipstick 0.2 mg/dL (0.2 mg/dL) Urine Leukocyte Esterase Negative (NEG) Urine RBC 0 /HPF (0-2) Urine WBC Occ /HPF (0-4) Urine Squamous Epithelial Cells Few /LPF Urine Bacteria 0 /HPF (0-FEW) Urine Mucus Marked /LPF Sodium Level 143 mmol/L (136-145) Potassium Level 3.4 mmol/L (3.5-5.1) L Chloride Level 106 mmol/L (98-107) Carbon Dioxide Level 29 mmol/L (21-32) Anion Gap 8 (6-14) Blood Urea Nitrogen 12 mg/dL (7-20) Creatinine 0.6 mg/dL (0.6-1.0) Estimated GFR (Cockcroft-Gault) 102.0 BUN/Creatinine Ratio 20 (6-20) Glucose Level 78 mg/dL (70-99) Calcium Level 8.8 mg/dL (8.5-10.1) Magnesium Level 2.0 mg/dL (1.8-2.4) Total Bilirubin 0.4 mg/dL (0.2-1.0) Aspartate Amino Transferase (AST) 62 U/L (15-37) H Alanine Aminotransferase (ALT) 113 U/L (14-59) H Alkaline Phosphatase 81 U/L (46-116) Creatine Kinase 43 U/L (26-192) Creatine Kinase MB (Mass) 0.8 ng/mL (0.0-3.6) Creatine Kinase MB Relative Index % (0-4) Troponin I Quantitative < 0.017 ng/mL (0.000-0.055) RN-Wwx-[id number]-Type Natriuretic Peptide 211 pg/mL (0-124) H Total Protein 7.0 g/dL (6.4-8.2) Albumin 3.5 g/dL (3.4-5.0) Albumin/Globulin Ratio 1.0 (1.0-1.7) Thyroid Stimulating Hormone (TSH) 1.461 uIU/mL (0.358-3.74) Laboratory Tests 05/14/19 11:45 Laboratory Tests 05/14/19 12:50 EKG EKG [address] Marte sinus rhythm HR 57 no STEMI[] Radiology/Procedures Radiology/Procedures []PROCEDURE: CT HEAD WO CONTRAST STUDY: CT head without contrast INDICATION: Headache. Dizziness. COMPARISON: 02/06/2018 TECHNIQUE: Axial CT imaging through the head without the use of intravenous contrast. Sagittal and coronal reformats were obtained. One or more of the following individualized dose reduction techniques were utilized for this examination: 1. Automated exposure control 2. Adjustment of the mA and/or kV according to patient size 3. Use of iterative reconstruction technique. FINDINGS: No acute intracranial hemorrhage. No mass effect, midline shift or hydrocephalus. No CT evidence for an acute cortical infarction. Unremarkable scalp and visualized orbits. Unremarkable mastoid air cells and visualized paranasal sinuses. Normally aerated middle ears. Intact calvarium. IMPRESSION: Unremarkable head CT. No significant change from 02/06/2018. Electronically signed by: ROBSON WYNN MD (05/14/2019 1:43 PM) [id number] DICTATED and SIGNED BY: ROBSON WYNN MD DATE: 05/14/19 1343 Course & Med Decision Making Course & Med Decision Making Pertinent Labs and Imaging studies reviewed. (See chart for details) This is a 4-year-old female patient presenting to the ED today complaining of headache, dizziness and sensation of the room spinning. She reports symptoms began 3 weeks ago but felt worse this morning. She's had similar symptoms before. CT of the head is negative, stroke scale is negative. Labs are negative. She was given meclizine 1 L of IV fluids. She reports she feels better. She's been up and ambulating with no distress. She was discharged to home. Dragon Disclaimer Dragon Disclaimer This electronic medical record was generated, in whole or in part, using a voice recognition dictation system. NIHSS Stroke Scale NIH Stroke Scale: NIH Stroke Scale Response (Comments) Value Level of Consciousness: 0 Alert/Responsive 0 LOC Questions: 0 Answers both correctly 0 LOC Commands: 0 Performs both tasks 0 Best Gaze: 0 Normal 0 Visual: 0 No visual loss 0 Facial Palsy: 0 Normal, symmetrical 0 Motor - Left Arm 0 No drift 0 Motor - Right Arm 0 No drift 0 Motor - Left Leg 0 No drift 0 Motor: Right Leg 0 No drift 0 Limb Ataxia: 0 Absent 0 Best Language: 0 Normal 0 Dysathria: 0 Normal 0 Extinction and Inattention: 0 Normal 0 Total 0 Departure Departure Impression: Primary Impression: Vertigo Disposition: HOME, SELF-CARE Condition: STABLE Referrals: REESE WHITE MD (PCP) follow up in the next 1-7 days HARRIS RAWLS MD follow up in 1-2 weeks Patient Instructions: Vertigo, [id number] Additional Instructions: You were evaluated in the emergency room for vertigo. Please follow-up with your primary care doctor as well as the provided urologist. Come back to the ED at any point symptoms worsen. Scripts Meclizine Hcl (MECLIZINE HCL) 12.5 Mg Tablet 1 TAB PO TID, #21 TAB Prov: NATHANIELYESSICA BARRINGTON 05/14/19 YESSICA ARMSTRONG APRN May 14, 2019 14:58
== END 2019-05-14 15:15 | disposition home or self-care (01) ==
LOC: ER 10:14
DX: R42 Dizziness and giddiness (principal); R51 Headache; R11.0 Nausea; I10 Essential (primary) hypertension; E78.00 Pure hypercholesterolemia, unspecified
CPT/HCPCS: 36415; 70450; 80053; 80307; 81001; 82553; 83735; 83880; 84443; 84484; 85025; 93005; 96361; 96374; 99285; J2405; J7030; J8597

== ENCOUNTER → 2020-01-21 | Outpatient (CLI) | payer MEDICARE, MEDICAID ==
[~2020-01-21] MED LIST changes: +IOHEXOL 180 MG/ML 10 ML VIAL. ONE; -LISI1TAB19 PO; +LISI1TAB37 PO; +MECL12.573 PO; +methylPREDNISolone ACETATE 40 MG/ML VIAL. ONE; +methylPREDNISolone ACETATE 80 MG/ML VIAL. ONE
--- NOTE | 2020-01-21 10:59 | PDOC ---
Progress Note - Pain Clinic Date of Service: DOS: DATE: 01/21/20 TIME: 10:55 Diagnosis: Dx: Lumbar radiculopathy with lumbar degenerative disease and lumbar spinal stenosis History or Present Illness: HPI: 59-year-old female returns follow-up status post lumbar epidural steroid traction x1 September 02, 2018 patient was doing very well about 80% improvement for several months following the procedure patient ports pain is returning now over the past 6 months or so in the low back and bilateral lower extremities worse now on the left than the right or initially was worse on the right about a year ago is now worse on the left worse with walking standing changing positions patient reports no recent injury or accident that she is aware of the pain has been returning on its own but did very well after the last injection with distance walking doing house of activities work activities try with greater ease and comfort patient but she still sleeping well at night does not awaken her from sleep patient rates the pain as a 9 on scale 10 is worse over the past week 7 on average 7 sleeps is a 7 today patient reported sharp and aching radiating constant in the posterior gluteus posterior lateral thigh lateral anterior thighs more the left than the right and to the medial lower leg into the left calf with standing and walking. Patient reports no bowel or bladder continence or other complaints at this time Physical Exam: VS: Pressure is 139/84 pulse 83 respirations 18 temperature 98.1 F 5 feet 2 inches weight 173 lbs PE: PHYSICAL EXAMINATION: GENERAL: The patient is awake, alert, oriented, appropriate, very pleasant demeanor HEENT: Shows normocephalic, atraumatic. Extraocular movements are intact and symmetrical. Patient wearing eyeglasses NECK: Shows anterior throat supple without palpable lymphadenopathy noted. Swallow reflex symmetrical. CHEST: Shows normal on inspection. Breath sounds are clear bilaterally, no rales rhonchi or wheezes auscultated. HEART: Shows S1, S2 clear. No murmurs auscultated. ABDOMEN: Soft, nontender, nondistended, obese. No palpable organomegaly is noted. No rebound or guarding demonstrated. BACK: Shows spine grossly in the midline. Normal-appearing cervical lordotic curvature. There is slightly increased thoracic kyphosis, some minor flattening of the lumbar lordotic curvature. Lumbar paraspinous muscles show symmetrical on inspection, on palpation shows some moderate tenderness diffusely throughout the upper, middle and lower distribution of the paraspinous muscles bilaterall,, but without specific trigger points, without radiation of pain. The patient has good rotational motion of the lumbar spine, both laterally as well as extension and flexion without significant difficulty. No tenderness over the spinous processes, sacrum or sacroiliac regions. EXTREMITIES: Lower extremities show deep tendon reflexes 2+ in the patellar and tendo calcaneus tendons. Motor exam is 5 on a scale of 5 with right dorsiflexion, extension, quadriceps and hamstring flexion and 5/5 on the left. Peripheral pulses are 1+ posterior tibial. No peripheral edema is noted bilaterally. Lower extremities are warm and dry to touch, equal in color and appearance. SKIN: Shows warm and dry, good turgor. No edema. No sores, rashes or bruising throughout. Procedure: Procedure: Options were discussed with the patient. Patient chart was reviewed as her current medication regimen updated her review of systems updated today as well. We will proceed with a lumbar epidural steroid injection of the first in the series. Risks were discussed including but not limited to: Bleeding, infection, possibility of epidural hematoma and subsequent neurological compromise, dural puncture, headaches, spinal cord and/or nerve damage, side effects of steroid medication, and poor results regarding pain control. Patient understands wished to proceed. Patient return to clinic in possibly 2 weeks for follow-up was counseled as return appointment activity level and side effects to be aware of. Medication Injected: Med Injected: Procedure is lumbar epidural steroid injection under local anesthetic using sterile prep and drape at the L4-5 level using C-arm fluoroscopic guidance in both AP and lateral views medications injected is 120 mg Depo-Medrol + 10 mL preservative-free normal saline and 2 mL contrast- condition at discharge is stable patient tolerated procedure well had no complications. Condition at Discharge: Condition at Discharge: Condition at discharge stable patient either procedure well had no complications. JERSON CHATTERJEE MD Jan 21, 2020 10:59
== END ==
LOC: PNCL 10:17
PROVIDERS: ATTEND Anesthesiology
DX: M51.16 Intervertebral disc disorders with radiculopathy, lumbar region (principal); M48.061 Spinal stenosis, lumbar region without neurogenic claudication; J44.9 Chronic obstructive pulmonary disease, unspecified; F41.9 Anxiety disorder, unspecified; F32.9 Major depressive disorder, single episode, unspecified; K21.9 Gastro-esophageal reflux disease without esophagitis; E78.00 Pure hypercholesterolemia, unspecified; Z87.891 Personal history of nicotine dependence; Z79.899 Other long term (current) drug therapy; Z98.890 Other specified postprocedural states
CPT/HCPCS: 62323; J1030; J1040; Q9965

== ENCOUNTER → 2020-07-14 | Outpatient (CLI) | payer MEDICARE, MEDICAID ==
[~2020-07-14] MED LIST changes: +AMLO-186 PO; -AMLO5TAB10 PO; -MECL12.573 PO; +MECL12.582 PO
--- NOTE | 2020-07-14 08:15 | PDOC4 ---
PROCEDURE Procedure Patient was consented for lumbar epidural steroid injection. Risks were dis cussed including but not limited to: Bleeding, infection, possibility of epidural hematoma and subsequent neurological compromise, dural puncture, headaches, spinal cord and/or nerve damage, side effects of steroid medication, and poor results regarding pain control. Patient understands and wished to proceed. Procedure is lumbar epidural steroid injection under local anesthetic using sterile prep and drape at the L4-5 level using C-arm fluoroscopic guidance in both AP and lateral views medications injected is 120 mg Depo-Medrol + 10 mL preservative-free normal saline and 2 mL contrast- condition at discharge is stable patient tolerated procedure well had no complications. JERSON CHATTERJEE MD Jul 14, 2020 08:15
--- NOTE | 2020-07-14 08:15 | PDOC ---
Progress Note - Pain Clinic Date of Service: DOS: DATE: 07/14/20 TIME: 08:11 Diagnosis: Dx: Lumbar radiculopathy with lumbar degenerative disc disease and spinal stenosis History or Present Illness: HPI: 59-year-old female returns for follow-up status post injection x1. Patient last seen January 21, 2020. Patient did very well about 70% improvement after the injection pain returning now over the past few weeks in the low back and left lower extremity posterior gluteus posterior lateral thigh lateral anterior thigh anteromedial thigh radiating to the medial knee as well. Patient reports is worse with walking standing better with sitting or laying down initially she would do much better distance walking doing household activities work activities travel with greater ease and comfort patient reports is better with laying down does not awaken her from sleep at night. Patient rates pain is 8 on scale 10 is worse over the past week 8 on average 7 at its least and is an 8 today. Patient reports is aching and sharp shooting in the left lower extremity. Patient reports no new motor or sensory deficits no bowel or bladder incontinence or other complaints. Physical Exam: VS: Blood pressure is 144/81 pulse 91 respirations 18 temperature 90.6 F height is 5 feet 2 inches weight is 174 pounds PE: PHYSICAL EXAMINATION: GENERAL: The patient is awake, alert, oriented, appropriate, very pleasant demeanor HEENT: Shows normocephalic, atraumatic. Extraocular movements are intact and symmetrical. Oral cavity: Mucous membranes moist and pink. Dentition is intact. NECK: Shows anterior throat supple without palpable lymphadenopathy noted. Swallow reflex symmetrical. CHEST: Shows normal on inspection. Breath sounds are clear bilaterally, no rales or rhonchi. HEART: Shows S1, S2 clear. No murmurs auscultated. ABDOMEN: Soft, nontender, nondistended, obese. No palpable organomegaly is noted. No rebound or guarding demonstrated. BACK: Shows spine grossly in the midline. Normal-appearing cervical lordotic curvature. There is slightly increased thoracic kyphosis, some minor flattening of the lumbar lordotic curvature. Lumbar paraspinous muscles show symmetrical on inspection, on palpation shows some moderate tenderness diffusely throughout the upper, middle and lower distribution of the paraspinous muscles, but without specific trigger points, without radiation of pain. The patient has good rotational motion of the lumbar spine, both laterally as well as extension and flexion without significant difficulty. EXTREMITIES: Lower extremities show deep tendon reflexes 2+ in the patellar and tendo calcaneus tendons. Motor exam is 5 on a scale of 5 with right dorsiflexion, extension, quadriceps and hamstring flexion and 5/5 on the left. Peripheral pulses are 1+ posterior tibial. No peripheral edema is noted bilaterally. Lower extremities are warm and dry to touch, equal in color and appearance. SKIN: Shows warm and dry, good turgor. No edema. No sores, rashes or bruising throughout. Procedure: Procedure: Options discussed with the patient. Patient chart reviews her current medication regimen updated current review of systems updated today as well. We will proceed with a lumbar epidural steroid ejections today with fluoroscopic guidance. Risks were discussed including but not limited to: Bleeding, infection, possibility of epidural hematoma and subsequent neurological compromise, dural puncture, headaches, spinal cord and/or nerve damage, side effects of steroid medication, and poor results regarding pain control. Patient understands and wished to proceed. Patient will return to clinic in approximately 2 weeks for follow-up was counseled as to return appointment, activity level, and side effects to be aware of. Medication Injected: Med Injected: Procedure is lumbar epidural steroid injection under local anesthetic using sterile prep and drape at the L4-5 level using C-arm fluoroscopic guidance in both AP and lateral views medications injected is 120 mg Depo-Medrol + 10 mL preservative-free normal saline and 2 mL contrast- condition at discharge is stable patient tolerated procedure well had no complications. Condition at Discharge: Condition at Discharge: Condition at discharge stable, patient alert procedure well and had no complications. JERSON CHATTERJEE MD Jul 14, 2020 08:14
== END | disposition home or self-care (01) ==
LOC: PNCL 07:17
PROVIDERS: ATTEND Anesthesiology
DX: M51.16 Intervertebral disc disorders with radiculopathy, lumbar region (principal); M48.061 Spinal stenosis, lumbar region without neurogenic claudication; E78.00 Pure hypercholesterolemia, unspecified; I10 Essential (primary) hypertension; K21.9 Gastro-esophageal reflux disease without esophagitis; F41.9 Anxiety disorder, unspecified; F32.9 Major depressive disorder, single episode, unspecified; Z87.891 Personal history of nicotine dependence; Z72.89 Other problems related to lifestyle; Z98.890 Other specified postprocedural states
CPT/HCPCS: 62323; J1030; J1040; Q9965

== ENCOUNTER → 2020-12-17 | Outpatient (CLI) | payer MEDICARE, MEDICAID ==
[~2020-12-17] MED LIST changes: +BUPIVACAINE MPF 0.25% 10 ML VIAL. ONE; -methylPREDNISolone ACETATE 40 MG/ML VIAL. ONE
--- NOTE | 2020-12-17 13:52 | PDOC ---
Progress Note - Pain Clinic Date of Service: DOS: DATE: 12/17/20 TIME: 13:44 Diagnosis: Dx: Lumbar radiculopathy with lumbar degenerative disease and lumbar spinal stenosis Left greater trochanteric bursitis History or Present Illness: HPI: 60-year-old female returns in follow-up status post lumbar epidural steroid injection with good results about 50% improvement in low back pain her chief complaint today is left hip pain patient reports this is new is not present on her last visit worse with walking and standing and the lateral aspect of the hip very tender very sharp pain in the lateral aspect some rating to the groin as well also some pain in the right ankle. Patient reports her left hip is the main complaint and is much worse with walking standing changing positions pa darrynnt put all of her weight on the left leg with the lateral aspect of the hip painful. Patient reports is a 6 on scale 10 at all times worst least and average and a 6 today reported sharp and aching again worse with activity. Better with sitting or laying down but wakes up about every 4-5 hours. Patient reports no loss of motor function no new bowel or bladder incontinence. Physical Exam: VS: Blood pressure 139/78 pulse 68 respirations 20 temperature is 98.3 F height is 5 foot 2 inches weight is 171 pounds PE: PHYSICAL EXAMINATION: GENERAL: The patient is awake, alert, oriented, appropriate, very pleasant in demeanor HEENT: Shows normocephalic, atraumatic. Extraocular movements are intact and symmetrical. Oral cavity: Mucous membranes moist and pink. Dentition is intact. NECK: Shows anterior throat supple without palpable lymphadenopathy noted. Swallow reflex symmetrical. CHEST: Shows normal on inspection. Breath sounds are clear bilaterally, no rales rhonchi or wheezes auscultated. HEART: Shows S1, S2 clear. No murmurs auscultated. ABDOMEN: Soft, nontender, nondistended, obese. No palpable organomegaly is noted. BACK: Shows spine grossly in the midline. Normal-appearing cervical lordotic curvature. There is slightly increased thoracic kyphosis, some minor flattening of the lumbar lordotic curvature. Lumbar paraspinous muscles show symmetrical on inspection, on palpation shows some moderate tenderness diffusely throughout the upper, middle and lower distribution of the paraspinous muscles, but without specific trigger points, without radiation of pain. The patient has good rotational motion of the lumbar spine, both laterally as well as extension and flexion without significant difficulty. No tenderness over the spinous processes, sacrum or sacroiliac regions. EXTREMITIES: Lower extremities show deep tendon reflexes 2+ in the patellar and tendo calcaneus tendons. Motor exam is 5 on a scale of 5 with right dorsiflexion, extension, quadriceps and hamstring flexion and 5/5 on the left. Peripheral pulses are 1+ posterior tibial. No peripheral edema is noted bilater ally. Lower extremities are warm and dry. Patient's left hip shows significant tenderness over the greater trochanter very tender very sharp pain reported with radiation to the lateral aspect of the thigh on the left side only. Right side is nontender. SKIN: Shows warm and dry, good turgor. No edema. No sores, rashes or bruising throughout. Procedure: Procedure: Options were discussed with the patient. Patient chart reviews her current medication regimen updated current review of systems updated today as well. We will proceed with a left greater trochanteric bursa injection today with fluoroscopic guidance. Risk discussed including but not limited to bleeding infection possibility of intravascular injection sequelae spread local anesthetic numbness side effects of steroid medication exposure fluoroscopy and portals regarding pain control. Patient understands wished to proceed. Patient return to clinic in approximately 4 weeks for follow-up, was counseled as return appointment, activity level, and side effects beware of. Medication Injected: Med Injected: Under sterile prep and drape patient in supine position using C-arm fluoroscopic guidance patient's greater trochanter was visualized. Using 25-gauge needle and 1% lidocaine area lateral to the greater trochanter was anesthetized. Using a 25-gauge needle under direct fluoroscopic visualization the greater trochanteric bursa was contacted with negative aspiration noted. 1.5 cc of con trast was then injected with good local spread at the greater trochanteric bursa without washout. At this time, a solution containing 3 cc of 0.25% bupivacaine and 80 mg Depo-Medrol was then injected into greater trochanteric bursa. Patient tolerated the procedure well and had no complications. Condition at Discharge: Condition at Discharge: Condition at discharge stable, patient already the procedure well and had no complications. JERSON CHATTERJEE MD Dec 17, 2020 13:52
--- NOTE | 2020-12-17 13:52 | PDOC4 ---
Procedure Note: ICD 10 Code: ICD 10 Code: M70.62 Procedure Note: Patient was consented for left greater trochanteric bursa injection with fluoroscopic guidance. Risk were discussed including but not limited to bleeding infection possibility of intravascular injection sequelae spread of local anesthetic numbness, side effects steroid medication, exposure fluoroscopy, and poor results regarding pain control. Patient understands wishes to proceed. Under sterile prep and drape patient in supine position using C-arm fluoroscopic guidance patient's greater trochanter was visualized. Using 25-gauge needle and 1% lidocaine area lateral to the greater trochanter was anesthetized. Using a 25-gauge needle under direct fluoroscopic visualization the greater trochanteric bursa was contacted with negative aspiration noted. 1.5 cc of contrast was then injected with good local spread at the greater trochanteric bursa without washout. At this time, a solution containing 3 cc of 0.25% bupivacaine and 80 mg Depo-Medrol was then injected into greater trochanteric bursa. Patient tolerated the procedure well and had no complications. JERSON CHATTERJEE MD Dec 17, 2020 13:52
== END | disposition home or self-care (01) ==
LOC: PNCL 12:44
PROVIDERS: ATTEND Anesthesiology
DX: M70.62 Trochanteric bursitis, left hip (principal); M51.16 Intervertebral disc disorders with radiculopathy, lumbar region; M48.061 Spinal stenosis, lumbar region without neurogenic claudication; I10 Essential (primary) hypertension; E78.00 Pure hypercholesterolemia, unspecified; K21.9 Gastro-esophageal reflux disease without esophagitis; F41.9 Anxiety disorder, unspecified; F32.9 Major depressive disorder, single episode, unspecified; Z87.891 Personal history of nicotine dependence; Z90.49 Acquired absence of other specified parts of digestive tract; Z90.710 Acquired absence of both cervix and uterus; Z98.890 Other specified postprocedural states; Z79.899 Other long term (current) drug therapy; Z72.89 Other problems related to lifestyle
CPT/HCPCS: 20610; 77002; J1040; J3490; Q9965

== ENCOUNTER → 2021-04-26 | Outpatient (CLI) | payer MEDICARE, MEDICAID ==
[~2021-04-26] MED LIST changes: -BUPIVACAINE MPF 0.25% 10 ML VIAL. ONE; +CYCL10TA19 PO; -CYCL10TA2 PO; +methylPREDNISolone ACETATE 40 MG/ML VIAL. ONE
--- NOTE | 2021-04-26 09:44 | PDOC ---
Progress Note - Pain Clinic Date of Service: DOS: DATE: 04/26/21 TIME: 09:40 Diagnosis: Dx: Lumbar radiculopathy with lumbar degenerative disc disease and lumbar spinal stenosis Left greater trochanteric bursitis Osteoarthritis History or Present Illness: HPI: 60-year-old female returns last seen June 16, 2020 underwent left greater trochanteric bursa injection with 75% improvement still doing much better patient reports her chief complaint today however is the low back and right lower extremity pain patient had had some left lower extremity pain in the distant past but now is on the right side across the low back and the right posterior gluteus lateral thigh anterior thigh medial thigh medial lower leg on occasion and medial knee but mostly in the back and the right hip and upper leg patient report is worse with walking standing changing positions patient reports no recent injury or accident that she is aware of rates the pain is a 10 on scale 10 is worst 7 on average is 4 to [place] is a 4 today describes the pain as aching and sharp in the back and leg can be constant at times with walking and standing. Patient reports no bowel or bladder incontinence. Patient reports her left hip is doing much better but still has some pain from time to time with standing and walking extended periods more than about 30 to 40 minutes. Patient reports she is beginning to have pain waking her from sleep on the right leg about every 4 hours patient reports no bowel or bladder incontinence. Physical Exam: VS: Blood pressure is 146/86 pulse 90 respirations 18 temperature 98.8 F height is 5 feet 2 inches weight is 176 pounds PE: PHYSICAL EXAMINATION: GENERAL: The patient is awake, alert, oriented, appropriate, very pleasant in demeanor HEENT: Shows normocephalic, atraumatic. Extraocular movements are intact and symmetrical. Oral cavity: Mucous membranes moist and pink. Dentition is intact. NECK: Shows anterior throat supple without palpable lymphadenopathy noted. Swallow reflex symmetrical. CHEST: Shows normal on inspection. Breath sounds are clear bilaterally, distant but no rales or rhonchi. HEART: Shows S1, S2 clear. No murmurs auscultated. ABDOMEN: Soft, nontender, nondistended. No palpable organomegaly is noted. BACK: Shows spine grossly in the midline. Normal-appearing cervical lordotic curvature. There is slightly increased thoracic kyphosis, some minor flattening of the lumbar lordotic curvature. Lumbar paraspinous muscles show symmetrical on inspection, on palpation shows some moderate tenderness diffusely throughout the upper, middle and lower distribution of the paraspinous muscles without specific trigger points, without radiation of pain. The patient has good rotational motion of the lumbar spine, both laterally as well as extension and flexion without significant difficulty. No tenderness over the spinous processes, sacrum or sacroiliac regions. EXTREMITIES: Lower extremities show deep tendon reflexes 2+ in the patellar and tendo calcaneus tendons. Motor exam is 5 on a scale of 5 with right dorsiflexion, extension, quadriceps and hamstring flexion and 5/5 on the left. Peripheral pulses are 1+ posterior tibial. No peripheral edema is noted bilaterally. Lower extremities are warm and dry to touch, equal in color and a ppearance. SKIN: Shows warm and dry, good turgor. No edema. No sores, rashes or bruising throughout. Procedure: Procedure: Options discussed with the patient. Patient's old heart was reviewed as her current medication regimen updated current review of systems updated today as well. We will proceed with a lumbar epidural steroid injection today with fluoroscopic guidance. Risks were discussed including but not limited to: Bleeding, infection, possibility of epidural hematoma and subsequent neurological compromise, dural puncture, headaches, spinal cord and/or nerve damage, side effects of steroid medication, and poor results regarding pain control. Patient understands and wished to proceed. Patient will return to clinic in approximate 2 weeks for follow-up, was counseled as to return appointment, activity level, and side effects to be aware of. We discussed patient's arthritic condition and will add new medication of meloxicam 15 mg once daily. Patient was given instruction as well as side effects to be aware of with the medication. Medication Injected: Med Injected: Procedure is lumbar epidural steroid injection under local anesthetic using sterile prep and drape at the L4-5 level using C-arm fluoroscopic guidance in both AP and lateral views medications injected is 120 mg Depo-Medrol +10mL preservative-free normal saline and 2 mL contrast- condition at discharge is stable patient tolerated procedure well had no complications. Condition at Discharge: Condition at Discharge: Condition at discharge stable, patient tolerated procedure well and had no complications. JERSON CHATTERJEE MD Apr 26, 2021 09:44
--- NOTE | 2021-04-26 09:44 | PDOC4 ---
Procedure Note: ICD 10 Code: ICD 10 Code: M54.16 M51.36 M48.06 Procedure Note: Patient was consented for lumbar epidural steroid injection with fluoroscopic guidance. Risks were discussed including but not limited to: Bleeding, infection, possibility of epidural hematoma and subsequent neurological compromise, dural puncture, headaches, spinal cord and/or nerve damage, side effects of steroid medication, and poor results regarding pain control. Patient understands and wished to proceed. Procedure is lumbar epidural steroid injection under local anesthetic using sterile prep and drape at the L4-5 level using C-arm fluoroscopic guidance in both AP and lateral views medications injected is 120 mg Depo-Medrol +10mL preservative-free normal saline and 2 mL contrast- condition at discharge is stable patient tolerated procedure well had no complications. JERSON CHATTERJEE MD Apr 26, 2021 09:44
== END | disposition home or self-care (01) ==
LOC: PNCL 08:22
PROVIDERS: ATTEND Anesthesiology
DX: M51.16 Intervertebral disc disorders with radiculopathy, lumbar region (principal); M48.061 Spinal stenosis, lumbar region without neurogenic claudication; M70.62 Trochanteric bursitis, left hip; M19.90 Unspecified osteoarthritis, unspecified site; I10 Essential (primary) hypertension; E78.00 Pure hypercholesterolemia, unspecified; K21.9 Gastro-esophageal reflux disease without esophagitis; F41.9 Anxiety disorder, unspecified; F32.9 Major depressive disorder, single episode, unspecified; Z90.49 Acquired absence of other specified parts of digestive tract; Z90.710 Acquired absence of both cervix and uterus; Z98.890 Other specified postprocedural states; Z87.891 Personal history of nicotine dependence; Z79.899 Other long term (current) drug therapy
CPT/HCPCS: 62323; J1030; J1040; Q9965